=== PATIENT | male | born 1935 | race Caucasian/White ===

== ENCOUNTER 2018-03-14 21:23 | Emergency (ER) | payer MEDICARE ==
[~2018-03-14] VITALS: Ht 165.1 cm; Wt 53.1 kg
[2018-03-14] MEDS ORDERED: HYDROCODONE/APAP 10MG-325MG TAB PO ONE (21:45)
--- NOTE | 2018-03-14 22:42 | Diagnostic Imaging Report ---
Examination: CT head without contrast Clinical Indication: Fall, head injury. Technique: Transaxial noncontrast images from the skull base through the vertex were obtained. Sagittal and coronal reformatted images were done. Comparison: None. Findings: Scalp: No abnormalities. Bones: Intact. No fractures. No blastic or lytic lesions. Brain sulci: Moderate volume loss for patient's age. Ventricles: No hydrocephalus. Extra-axial space: No abnormalities. Parenchyma: There are mild confluent areas of low-attenuation within subcortical and periventricular white matter, nonspecific, but could represent microvascular ischemic disease. No masses, hemorrhage, or acute or chronic cortical based vascular insults. Suprasellar region: No abnormalities. Craniocervical junction: The foramen magnum is patent. No Chiari one malformation. Incidental findings: Prior left mastoidectomy. Impression: 1. No acute intracranial finding. 2. Severe chronic microvascular ischemic change and moderate volume loss. Signed by: Dr. Abby Funk M.D. on 03/14/2018 10:38 PM
--- NOTE | 2018-03-14 22:49 | Diagnostic Imaging Report ---
Examination: CT CERVICAL SPINE WITHOUT CONTRAST HISTORY:Neck pain. Fall. COMPARISON:None. TECHNIQUE: Multidetector helical axial images were obtained without contrast from the foramen magnum to T1. Coronal and sagittal reformatted images were done. Bone and soft tissue windows were evaluated. FINDINGS: Alignment:Normal alignment and lordosis. Vertebrae: Diffuse decrease in density with chronic compression fractures of C6 and C7. No acute fracture, infection or neoplasm. Disc space heights: Normal height. Caliber of spinal canal: Developmentally normal. Posterior fossa and craniocervical junction: Foramen magnum patent. No Chiari 1 malformation. Soft tissues: Atherosclerotic calcification of the bilateral carotid bifurcations. Degenerative changes: Severe bilateral facet arthropathy. No canal stenosis. IMPRESSION: 1. No acute abnormalities. 2. Chronic compression fracture of C6 and C7. Signed by: Dr. Abby Funk M.D. on 03/14/2018 10:45 PM
--- NOTE | 2018-03-14 23:07 | Diagnostic Imaging Report ---
SHOULDER RIGHT COMPLETE HISTORY: Status post fall, unable to move right shoulder COMPARISON: None FINDINGS: Bones: Acute, comminuted fracture of the proximal right humeral diaphysis and questionable involvement of the articular surface of the right humerus Osseous alignment is within normal limits. Patient is unable to rotate. Old fracture deformity of the lateral right clavicular shaft. Joints: The joint spaces are well-maintained. Soft tissues: The soft tissues appear unremarkable. IMPRESSION: Comminuted fracture of the proximal right humeral diaphysis with questionable involvement of the articular surface. Signed by: Dr. Barak Sadler M.D. on 03/14/2018 11:03 PM
--- NOTE | 2018-03-15 01:05 | Diagnostic Imaging Report ---
CT scan of the RIGHT SHOULDER, WITHOUT intravenous contrast. TECHNIQUE: Standard departmental protocols were used. Sagittal and coronal reformatted images were obtained. HISTORY: Evaluation for intra-articular involvement fracture. COMPARISON: Right shoulder x-ray on 03/14/2018 FINDINGS: Bones: There is an acute, transverse fracture of the right acromion best seen on series 3, image 16 and coronal series 502, image 37 without displacement. Chronic posttraumatic changes are visualized in the lateral right clavicle and proximal right humerus with irregular cortical bone healing Diffuse demineralization. Joints: Moderate degenerative changes of the right glenohumeral joint Soft Tissues: Mild soft tissue swelling surrounding the fracture site IMPRESSION: 1. Acute, transverse fracture of the right acromion. 2. No evidence of acute fracture involving the proximal right humerus which demonstrate chronic changes from prior trauma including the right clavicle. 3. Moderate degenerative changes of the right glenohumeral joint Signed by: Dr. Barak Sadler M.D. on 03/15/2018 1:02 AM
[2018-03-15] MEDS ORDERED: ULTRAM 50MG50 MG PO (01:41)
[2018-03-15 01:42] VITALS: BP 141/88
== END 2018-03-15 01:54 | disposition home or self-care (01) ==
LOC: ER 21:23
DX: S42.121A Displaced fracture of acromial process, right shoulder, initial encounter for closed fracture (principal); W18.11XA Fall from or off toilet without subsequent striking against object, initial encounter; Y92.002 Bathroom of unspecified non-institutional (private) residence as the place of occurrence of the external cause; G40.909 Epilepsy, unspecified, not intractable, without status epilepticus; G30.9 Alzheimer's disease, unspecified; F02.80 Dementia in other diseases classified elsewhere, unspecified severity, without behavioral disturbance, psychotic disturbance, mood disturbance, and anxiety; F32.9 Major depressive disorder, single episode, unspecified; E78.00 Pure hypercholesterolemia, unspecified; G89.29 Other chronic pain
CPT/HCPCS: 70450; 72125; 99284